=== PATIENT | male | born 1985 | race Caucasian/White ===

== ENCOUNTER 2018-10-19 17:13 | Emergency (ER) | payer OTHER ==
[~2018-10-19] VITALS: Ht 175.3 cm; Wt 82.0 kg
[2018-10-19 17:24] VITALS: BP 133/67; PULSE 96; RESP 18; Ht 175.3 cm; Wt 82.0 kg
[2018-10-19] MEDS ORDERED: KETOROLAC 60 MG INJ IM STA (19:11)
--- NOTE | 2018-10-19 19:36 | ERD ---
ER Documentation Chief Complaint Chief Complaint RT UPPER ABD PAIN RADIATING TO BACK X 2 DAYS HPI 33-year-old male presents with complaint of right chest wall pain for the past 3 weeks. States that he was shoveling dirt when the pain started. He thinks he might have strained a muscle. States that the pain is made worse with exertion however he states that he is in pain right now as he is lying down on the exam table. Denies any diaphoresis, shortness of breath, nausea, radiation of pain, fevers. History of cocaine abuse, stopped in 2011. ROS All systems reviewed and are negative except as per history of present illness. Medications Home Meds Active Scripts Ibuprofen* (Motrin*) 600 Mg Tab, 600 MG PO Q6 for pain, #30 TAB Prov:GILL COPELAND 10/19/18 Allergies Allergies: Coded Allergies: No Known Drug Allergies (Verified Allergy, Unknown, 10/19/18) PMhx/Soc Medical and Surgical Hx: pt denies Medical Hx, pt denies Surgical Hx Hx Alcohol Use: No Hx Substance Use: Yes (former) Smoking Status: Current some day smoker FmHx Family History: No diabetes, No coronary disease, No other Physical Exam Vitals Vital Signs Date Temp Pulse Resp B/P (MAP) Pulse Ox O2 O2 Flow FiO2 Time Delivery Rate 10/19/18 98.6 96 18 133/67 98 17:24 (89) Physical Exam Const: No acute distress Head: Atraumatic Eyes: Normal Conjunctiva ENT: Normal External Ears, Nose and Mouth. Neck: Full range of motion. No meningismus. Resp: Clear to auscultation bilaterally Cardio: Regular rate and rhythm, no murmurs. Tender to palpation over the right chest wall area. No edema erythema, ecchymosis, or bony deformities noted. Abd: Soft, non tender, non distended. Normal bowel sounds Skin: No petechiae or rashes Back: No midline or flank tenderness Ext: No cyanosis, or edema Neur: Awake and alert Psych: Normal Mood and Affect Results 24 hrs Laboratory Tests Test 10/19/18 19:20 Troponin I < 0.012 ng/ml Current Medications Medications Dose Sig/Hiram Start Time Status Last (Trade) Ordered Route PRN Stop Time Admin Dose Reason Admin Ketorolac 60 mg ONCE STAT 10/19/18 DC 10/19/18 Tromethamine IM 19:11 10/19/18 19:16 (Toradol) 19:13 Procedures/MDM DIAGNOSTIC IMAGING REPORT Patient: PILI NATHAN : 1985 Age: 33 Sex: M MR #: [id number] DOS: 10/19/181910 Ordering MD: GILL COPELAND Location: [facility] Room/Bed: PROCEDURE: XR Chest 1 View. CLINICAL INDICATION: Right chest pain. TECHNIQUE: Single view of the chest was obtained. COMPARISON: None. FINDINGS: Mediastinum: Within normal limits of size. Lungs: Minimal subsegmental atelectasis in the bilateral lower lobes. No consolidations. No pneumothorax. Osseous structures: Intact. Other: None. IMPRESSION: Atelectasis in the bilateral lower lobes. If further characterization of the chest or ribs is needed CT is recommended. RPTAT: AA .Justin Keys MD, MD Date Time Electronically viewed and signed by .Justin Keys MD, MD on 10/19/2018 20:39 .P/ CC: GILL COPELAND [phone] EKG: Rate/Rhythm: Normal Sinus Rhythm QRS, ST, T-waves: No changes consistent w/ acute ischemia Impression: No evidence of ischemia or arrhythmia Chest x-ray chest x-ray was ordered and results within normal limits. EKG was within normal limits. Troponin was negative. Presentation is consistent with chest wall strain most likely secondary to shoveling. Patient discharged with Rx for ibuprofen. I have low suspicition for acute coronary syndrome, pulmonary embolism, aortic dissection, AAA, pneumothorax, esophageal rupture, pericarditis, myocarditis, or pneumonia based on EKG, imaging, labs, patient history and exam. Patient discharged with strict ER precautions. Patient advised to follow up with PMD. All questions answered at discharge. Departure Diagnosis: Primary Impression: Muscle strain Condition: Stable GILL COPELAND Oct 19, 2018 19:36
[2018-10-19] MEDS ORDERED: IBUP-1542 PO (20:42)
[2018-10-19] MEDS ORDERED: FLUT9.9S NASAL (20:51)
== END 2018-10-19 20:55 | disposition home or self-care (01) ==
LOC: FTE 17:13
DX: S29.011A Strain of muscle and tendon of front wall of thorax, initial encounter (principal); F17.210 Nicotine dependence, cigarettes, uncomplicated; R07.9 Chest pain, unspecified; X50.1XXA Overexertion from prolonged static or awkward postures, initial encounter; Y92.9 Unspecified place or not applicable
CPT/HCPCS: 71045; 84484; 93005; 96372; J1885; Z7502

== ENCOUNTER 2018-12-24 01:03 | Emergency (ER) | payer SELFPAY ==
[~2018-12-24] VITALS: Ht 175.3 cm; Wt 78.1 kg
[~2018-12-24 01:03] MED LIST: FLUT9.9S NASAL; IBUP-1542 PO
[2018-12-24 01:12] VITALS: BP 133/77; PULSE 118; RESP 18; Ht 175.3 cm; Wt 78.1 kg
== END 2018-12-24 03:04 | disposition left against medical advice (07) ==
LOC: FTE 01:03
DX: Z53.21 Procedure and treatment not carried out due to patient leaving prior to being seen by health care provider (principal)

== ENCOUNTER 2019-03-02 05:15 | Emergency (ER) | payer OTHER ==
[~2019-03-02] VITALS: Ht 175.3 cm; Wt 75.7 kg
[~2019-03-02 05:15] MED LIST changes: +ACET325T33 PO
[2019-03-02 05:19] VITALS: Ht 175.3 cm; Wt 75.7 kg
[2019-03-02] MEDS ORDERED: SOD CHLORIDE 0.9% 1,000 ML IV STA (05:37)
[2019-03-02] MEDS ORDERED: LIDOCAINE/MYLANTA 40 ML BTL PO STA (05:37)
[2019-03-02] MEDS ORDERED: ONDANSETRON 4 MG INJ IV STA (05:37)
[2019-03-02] MEDS ORDERED: morphine 2 MG INJ IV STA (05:37)
[2019-03-02] MEDS ORDERED: LOPERAMIDE 2 MG CAP PO ONE (06:00)
[2019-03-02] MEDS ORDERED: DICYCLOMINE 10 MG CAP PO ONE (06:00)
[2019-03-02 07:42] VITALS: BP 118/62; PULSE 74; RESP 18
== END 2019-03-02 07:44 | disposition home or self-care (01) ==
LOC: FTE 05:15
DX: R10.30 Lower abdominal pain, unspecified (principal); R19.7 Diarrhea, unspecified
CPT/HCPCS: 36415; 80053; 81001; 83690; 85025; 96374; 96375; J2270; J2405; J7030; Z7502; Z7610; 81003